=== PATIENT | female | born 1940 | race Caucasian/White ===

== ENCOUNTER 2018-06-06 13:30 | Day surgery (SDC) | payer MEDICARE, OTHER ==
[~2018-06-06 13:30] MED LIST: LACTATED RINGERS 1,000 ML IV.SOLN IV ONE; MIDAZOLAM HCL 2 MG/2 ML VIAL ONE; fentaNYL CITRATE/PF 100 MCG/2 ML INJ. ONE
== END 2018-06-06 16:04 | disposition home or self-care (01) ==
LOC: OPSURG 13:30
PROVIDERS: ATTEND Physical Medicine & Rehabilitation
DX: M46.1 Sacroiliitis, not elsewhere classified (principal); M47.817 Spondylosis without myelopathy or radiculopathy, lumbosacral region
CPT/HCPCS: 64635; 64636; J2250; J3010; J7120

== ENCOUNTER 2018-09-05 08:11 | Day surgery (SDC) | payer MEDICARE, OTHER ==
[2018-09-05] MEDS ORDERED: fentaNYL CITRATE/PF 100 MCG/2 ML INJ. ONE (08:48)
[2018-09-05] MEDS ORDERED: MIDAZOLAM HCL 2 MG/2 ML VIAL ONE (08:48)
[2018-09-05] MEDS ORDERED: BUPIV. HCL 0.5% (5MG/ML)/EPI. (1:200,000) PF 30 ML VIAL IJ ONE (08:48)
[2018-09-05] MEDS ORDERED: LACTATED RINGERS 1,000 ML IV.SOLN IV ONE (08:48)
[2018-09-05] MEDS ORDERED: LIDOCAINE HCL 1% PF 300MG/30ML VIAL ONE (08:48)
== END 2018-09-05 13:15 | disposition home or self-care (01) ==
LOC: OPSURG 08:11
PROVIDERS: ATTEND Physical Medicine & Rehabilitation
DX: M46.1 Sacroiliitis, not elsewhere classified (principal); M47.816 Spondylosis without myelopathy or radiculopathy, lumbar region
CPT/HCPCS: 64555; J2001; J2250; J3010; J7120

== ENCOUNTER 2018-11-07 09:33 | Day surgery (SDC) | payer MEDICARE, OTHER ==
[~2018-11-07 09:33] MED LIST changes: +0.9 % SODIUM CHLORIDE PF 10 ML VIAL IJ ONE; +BACITRACIN 50,000 UNIT VIAL IR ONE; +DEXAMETHASONE SODIUM PHOSPHATE 10 MG/ML VIAL ONE; +LIDOCAINE HCL 1%/EPI. (1:100,000) MDV 20ML VIAL IJ ONE; +LIDOCAINE HCL 2% PF 100MG/5ML VIAL IJ ONE; +ONDANSETRON HCL/PF 4 MG/ 2ML VIAL ONE; +PROPOFOL 200 MG/20 ML VIAL IV ONE; +ROCURONIUM BROMIDE 10 MG/ML 5ML VIAL ONE; +SEVOFLURANE 250 ML LIQUID IH ONE; +SUGAMMADEX SODIUM 200 MG/2 ML VIAL IV ONE; +ceFAZolin SODIUM 1 GM VIAL ONE; +oxyCODONE/ACETAMINOPHEN 5/325 TABLET PO ONE
[2018-11-07] MEDS ORDERED: oxyCODONE/ACETAMINOPHEN 5/325 TABLET PO ONE (14:35)
== END 2018-11-07 16:10 | disposition home or self-care (01) ==
LOC: OPSURG 09:33
PROVIDERS: ATTEND Physical Medicine & Rehabilitation
DX: M47.816 Spondylosis without myelopathy or radiculopathy, lumbar region (principal); M46.1 Sacroiliitis, not elsewhere classified
CPT/HCPCS: 64555; 64590; A9270; J0690; J2001; J2250; J2405; J2704; J3010; J3490; J7120